=== PATIENT | female | born 1990 | race Caucasian/White ===

== ENCOUNTER 2023-01-11 12:16 | Emergency (ER) | payer BC, OTHER ==
[~2023-01-11] VITALS: Ht 180.3 cm; Wt 88.0 kg
[2023-01-11 12:50] VITALS: PULSE 80; RESP 18; O2SAT 99
[2023-01-11] MEDS ORDERED: SUMAtriptan SUCCINATE 6 MG/0.5 ML VL SC ONE (13:00)
[2023-01-11 13:31] VITALS: BP 119/68; PULSE 80; RESP 18; TEMP 97.2; O2SAT 99
[2023-01-11] MEDS ORDERED: SUMA50TA2 PO (13:32)
== END 2023-01-11 13:40 | disposition home or self-care (01) ==
LOC: ER 12:16
DX: G43.009 Migraine without aura, not intractable, without status migrainosus (principal)
CPT/HCPCS: 70450; 96372; 99285; J3030